=== PATIENT | male | born 1975 | race Two or more races ===

== ENCOUNTER 2020-08-25 08:26 | Emergency (ER) | payer SELFPAY ==
[~2020-08-25] VITALS: Ht 165.1 cm; Wt 99.8 kg
--- NOTE | 2020-08-25 09:00 | NUR ---
epigastric pain and lower abdominal pain x 1 week. Patient a/ox4, breathing even and unlabored, no sob noted, needs attended.
[2020-08-25 09:38] LABS: BASOPHILS % (AUTO) 0.6 % (0.0-2.0); EOSINOPHILS % (AUTO) 2.9 % (0.0-6.0); HEMATOCRIT 46 % (39-51); LYMPHOCYTES % (AUTO) 28.6 % (20.0-44.0); MEAN CORPUSCULAR HGB CONC 33 g/dl (31.0-36.0); MEAN CORPUSCULAR VOLUME 85 fL (80-96); MONOCYTES # (AUTO) 0.6 /CMM (0.1-1.30); MONOCYTES % (AUTO) 8.6 % (2.0-12.0); NEUTROPHILS # (AUTO) 4.1 /CMM (1.8-8.9); NEUTROPHILS % (AUTO) 59.3 % (43.0-81.0); PLATELET COUNT (AUTO) 171 /CMM (150-450); RED BLOOD CELL COUNT(AUTO) 5.42 MIL/uL (4.5-6.0)
[2020-08-25 09:59] LABS: CALCIUM, SERUM 8.8 mg/dL (8.5-10.1); CREATININE 0.9 mg/dL (0.6-1.3); POTASSIUM 3.9 mmol/L (3.5-5.1)
[2020-08-25 10:03] LABS: ALBUMIN 3.9 g/dL (3.4-5.0); BILIRUBIN,DIRECT 0.1 mg/dL (0.0-0.2); BILIRUBIN,TOTAL 0.5 mg/dL (0.2-1.0)
--- NOTE | 2020-08-25 11:30 | NUR ---
[facility] [phone] BRIANNE
--- NOTE | 2020-08-25 11:41 | NUR ---
CALLED CARDIO DR. LUCIO
--- NOTE | 2020-08-25 12:11 | NUR ---
COVID SWAB SENT.
[2020-08-25] MEDS ORDERED: IBUPROFEN 600 MG TABLET ONE (13:51)
[2020-08-25] MEDS ORDERED: HYDROCODONE/APAP 5/325MG TABLET ONE (13:51)
[2020-08-25] MEDS ORDERED: HYDROCODONE/APAP 5/325MG TABLET PO ONE (14:00)
[2020-08-25] MEDS ORDERED: IBUPROFEN 600 MG TABLET PO ONE (14:00)
--- NOTE | 2020-08-25 14:30 | NUR ---
PATIENT A/OX4, BREATHING EVEN AND UNLABORED, NO SOB NOTED. NEEDS ATTENDED, IV removed. Catheter intact and site benign. Pressure and 4x4 applied to site. No bleeding noted. RX provided and explained, Patient discharged to home in stable condition. Written and verbal after care instructions given. Patient verbalizes understanding of instruction. Copies of labs, ekg and imaging given to patient.
[2020-08-25 14:31] VITALS: BP 134/77
== END 2020-08-25 14:32 | disposition home or self-care (01) ==
LOC: ER 08:36
DX: R10.30 Lower abdominal pain, unspecified (principal); K42.9 Umbilical hernia without obstruction or gangrene; K43.9 Ventral hernia without obstruction or gangrene; R77.8 Other specified abnormalities of plasma proteins; Z20.828 Contact with and (suspected) exposure to other viral communicable diseases; R94.31 Abnormal electrocardiogram [ECG] [EKG]; K76.0 Fatty (change of) liver, not elsewhere classified; M51.36 Other intervertebral disc degeneration, lumbar region; R00.1 Bradycardia, unspecified; Z87.828 Personal history of other (healed) physical injury and trauma
CPT/HCPCS: 36415; 71045; 74176; 80048; 80076; 83605; 83690; 84484 ×2; 85025; 85730; 87426; 93005 ×2; 99291; C9803